=== PATIENT | male | born 1950 | race Caucasian/White ===

== ENCOUNTER → 2018-01-14 | Day surgery (SDC) | payer OTHER ==
[2017-12-31 15:34] LABS: ABSOLUTE BASOPHILS 0.1 thou/uL (0.0-0.2); ABSOLUTE EOSINOPHILS 0.3 thou/uL (0.0-0.7); ABSOLUTE LYMPHOCYTES 1.2 thou/uL (0.8-5.3); ABSOLUTE MONOCYTES 0.8 thou/uL (0.0-1.2); ABSOLUTE NEUTROPHILS 6.7 thou/uL (1.6-8.1); BASOPHILS 0.6 %; EOSINOPHILS 3.3 %; HEMOGLOBIN 14.8 gm/dL (14.0-18.0); LYMPHOCYTES 13.5 %; MCH 28.3 pg (26.0-34.0); MCHC 32.8 g/dL (28.0-37.0); MCV 86.5 fL (80.0-100.0); MONOCYTES 9.2 %; MPV 7.2 fl. (7.2-11.1); NUCLEATED RBCS 0 /100WBC; PLATELET COUNT* 311 thou/uL (150-400); POLYS 73.4 %; WBC 9.2 thou/uL (4.0-11.0)
[2017-12-31 15:40] LABS: CALCIUM 9.3 mg/dL (8.5-10.1); CREATININE 0.8 mg/dL (0.6-1.3)
[~2018-01-14] MED LIST: ALBUTEROL INHAL17 GM IH; AMOXICILLIN875 MG PO; AVELOX400 MG PO; DIAZEPAM 5 MG5 M1; FLONASE 0.05%50 MCG NS; MACROBID 100 M100 M1 PO; OXYBUTYNIN; OXYBUTYNIN 5 MG5 M2 PO; TRAMADOL; TRAMADOL 50 MG50 MG PO; TYLENOL PM EX-1 EACH PO; VALIUM5 MG PO; VITAMIN D1000 UNI1 PO
--- NOTE | 2018-01-14 16:16 | EKG ---
[place] [address] ELECTROCARDIOGRAM REPORT Name: GET KINSEY Room: [facility]#: [id number] Admission: 01/14/18 Attend Phys: Sb Blanco MD Discharge: Date of : 54 Report #: [id number] THIS REPORT FOR: //name// [facility] Test Date: 2018-01-14 Test Time: 14:39:51 Pat Name: GET KINSEY Department: Room: Gender: Certified Peer Specialist: : 1950 Requested By: Sb Blanco Order Number: [id number] Reading MD: Rah Weathers Measurements Intervals [place] Rate: 91 P: 24 LA: 157 QRS: -15 QRSD: 92 T: 61 QT: 377 QTc: 464 Interpretive Statements Sinus rhythm Probable left atrial enlargement Borderline left axis deviation Compared to ECG 05/07/2016 16:08:15 No significant changes Electronically Signed On 01-14-2018 16:16:45 CDT by Rah Weathers [email or web address] <ELECTRONICALLY SIGNED> By: Rah Weathers MD, [facility] 01/14/18 1616 1439 38 Rah Weathers MD, FAC /EPI
--- NOTE | 2018-01-20 12:50 | OP ---
[address] [address] OPERATIVE REPORT Name: GET KINSEY Room: [facility]#: [id number] Admission: 01/14/18 Attend Phys: Sb Blanco MD Discharge: Date of : 54 Report #: [id number] THIS REPORT FOR: //name// CC: Sb Veraharshal Weberith DATE OF SERVICE: 01/14/2018 PREOPERATIVE DIAGNOSES: Neurogenic bladder. POSTOPERATIVE DIAGNOSES: Neurogenic bladder. PROCEDURE PERFORMED: Cystoscopy with Botox injection. SURGEON: Sb Blanco MD. ANESTHESIA: Local only. ESTIMATED BLOOD LOSS: Minimal. COMPLICATIONS: None. 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 He is taking anticholinergics to manage his bladder. He would like to try to get off medications and try to limit his spasms around his catheter. The risks, benefits, possible complications were explained in detail for cystoscopy and Botox injection and he would like to proceed. DESCRIPTION OF PROCEDURE: After obtaining informed consent, the patient was taken to the operating room and placed in supine position. After adequate IV antibiotics, he was prepped and draped in the dorsal lithotomy position. His suprapubic catheter was removed. The genitals were prepped and draped in standard sterile fashion. A 24-[place]izen [place] catheter was placed into the bladder suprapubically, 10 mL of water was placed in the balloon. Cystoscopy was then carried out. The urethra was normal caliber all the way down to the prostatic urethra, where there was a large cavity within the prostatic urethra consistent with a prior displaced suprapubic balloon. Upon entering the bladder, the suprapubic tube was encountered in good location. The bladder mucosa was inspected. There were no stones, tumors or diverticula. There was a small amount of erythema along the posterior bladder wall. The bladder did not accommodate much fluid. Botox was mixed according to ostomy nurse's specifications and 100 units were injected in 0.5 mL injections along the posterior bladder wall. A total of 20 injections were performed from the posterior wall up to the dome, taking care to avoid the catheter and the trigone. After this had been done adequately, the cyst[place] [address] OPERATIVE REPORT Name: GET KINSEY Room: [facility]#: [id number] Admission: 01/14/18 Attend Phys: Sb Blanco MD Discharge: Date of : 54 Report #: [id number] suprapubic tube was placed to dependent drainage. The patient did have a spike in blood pressure during the treatment. It will be recommended that he continue Botox treatments under monitored anesthesia and possibly benefit from general anesthesia. <ELECTRONICALLY SIGNED> By: Sb Blanco MD 01/20/18 1250 1643 1713Sb Blanco MD /germaine
== END | disposition home or self-care (01) ==
LOC: M.SUR 07:56
PROVIDERS: Urology
DX: N31.9 Neuromuscular dysfunction of bladder, unspecified (principal); Z98.890 Other specified postprocedural states; Z91.040 Latex allergy status; Z88.0 Allergy status to penicillin; Z88.2 Allergy status to sulfonamides; Z79.899 Other long term (current) drug therapy

== ENCOUNTER → 2018-05-13 | Day surgery (SDC) | payer OTHER ==
[2018-05-13 12:47] LABS: HEMATOCRIT 48.7 % (42.0-52.0); HEMOGLOBIN 15.8 gm/dL (14.0-18.0); MCH 28.5 pg (26.0-34.0); MCHC 32.5 g/dL (28.0-37.0); MCV 87.5 fL (80.0-100.0); MPV 7.8 fl. (7.2-11.1); RBC 5.57 mil/uL (4.50-6.00); RDW-CV 15.8 % (10.5-14.5); WBC 11.8 thou/uL (4.0-11.0)
[2018-05-13 12:52] LABS: CALCIUM 8.7 mg/dL (8.5-10.1); CREATININE 0.7 mg/dL (0.6-1.3)
[2018-05-13 12:59] LABS: ALBUMIN 3.5 g/dL (3.4-5.0); TOTAL BILIRUBIN 0.4 mg/dL (<0.1-1.0); TOTAL PROTEIN 7.5 g/dL (6.4-8.2)
--- NOTE | 2018-05-13 16:46 | EKG ---
[place] [address] ELECTROCARDIOGRAM REPORT Name: GET KINSEY Room: [facility]#: [id number] Admission: 05/13/18 Attend Phys: Sb Blanco MD Discharge: Date of : 54 Report #: [id number] THIS REPORT FOR: //name// [facility] Test Date: 2018-05-13 Test Time: 12:24:11 Pat Name: GET KINSEY Department: Room: Gender: General Assignment Reporter: : 1950 Requested By: Sb Blanco Order Number: [id number] Reading MD: Angel Caldera Measurements Intervals [place] Rate: 83 P: 25 UT: 171 QRS: -5 QRSD: 90 T: 58 QT: 395 QTc: 465 Interpretive Statements Sinus rhythm Probable left atrial enlargement Compared to ECG 01/14/2018 14:39:51 No significant changes Electronically Signed On 05-13-2018 16:46:18 CDT by Angel Caldera [email or web address] <ELECTRONICALLY SIGNED> By: Angel Caldera MD, [facility] 05/13/18 1646 1224 1224 Angel Caldera MD, FACC /EPI
--- NOTE | 2018-05-31 14:25 | OP ---
[address] [address] OPERATIVE REPORT Name: GET KINSEY Room: [facility]#: [id number] Admission: 05/13/18 Attend Phys: Sb Blanco MD Discharge: Date of : 54 Report #: [id number] THIS REPORT FOR: //name// CC: Sb Blanco Bayron Weberith DATE OF SERVICE: 05/13/2018 PREOPERATIVE DIAGNOSIS: Neurogenic bladder. POSTOPERATIVE DIAGNOSIS: Neurogenic bladder. PROCEDURE PERFORMED: Cystoscopy with Botox injection. SURGEON: Sb Blanco MD. ANESTHESIA: General. ESTIMATED BLOOD LOSS: Minimal. COMPLICATIONS: None. INDICATION FOR PROCEDURE: This is a 68-year-old gentleman who is a partial quadriplegic, has neurogenic bladder with indwelling suprapubic tube. He has problems with incontinence around the tube and through his urethra if he does not take anticholinergics. He has been undergoing Botox treatments with excellent results. He now presents for repeat Botox injection. Risks, benefits, possible complications were explained in detail. He voiced understanding and would like to proceed. DESCRIPTION OF PROCEDURE: After obtaining informed consent, the patient was taken to the operating room and placed in supine position. After adequate general anesthesia and IV antibiotics, he was prepped and draped in dorsal lithotomy position. A 21-Egyptian cystoscope 30-degree lens was introduced in the anterior urethra, was normal caliber. All the way down the prostatic urethra, showed a fairly high bladder neck. Upon entering the bladder, bladder was systematically inspected. Some moderate amount of bullous edema along the posterior bladder wall consistent with indwelling suprapubic tube. The ureteral orifices were identified. There was note concerning features. A suprapubic tube had been previously moved during the prep. Using a cystoscope with a Botox injection needle, 200 units of Botox instilled using 20 mL of injectable saline at 1 mL increments were injected along the posterior bladder wall in approximately 1 cm segments. After all the injections, care was taken to avoid the trigone and the ureteral orifices. After all injections had been instilled, a 24-[place]ian suprapubic catheter was placed. Under direct vision, 10 mL was placed in the balloon. The catheter was placed to drainage[place] [address] OPERATIVE REPORT Name: GET KINSEY Room: [facility]#: [id number] Admission: 05/13/18 Attend Phys: Sb Blanco MD Discharge: Date of : 54 Report #: [id number] extubated and taken to recovery in good condition. Plan is to follow up in approximately 4-6 months for next injection. <ELECTRONICALLY SIGNED> By: Sb Blanco MD 05/31/18 1425 1413 151Phi Blanco MD /germaine
== END | disposition home or self-care (01) ==
LOC: M.SUR 08:40 → M.LAB 10:25 → M.SUR 11:55 → M.LAB 11:55
PROVIDERS: Urology
DX: N31.9 Neuromuscular dysfunction of bladder, unspecified (principal); Z91.040 Latex allergy status; Z88.2 Allergy status to sulfonamides; Z88.0 Allergy status to penicillin; Z79.899 Other long term (current) drug therapy

== ENCOUNTER → 2018-08-14 | Outpatient (CLI) | payer OTHER | LOC: M.WC 10:00 | DX: L89.303 Pressure ulcer of unspecified buttock, stage 3 (principal); L98.412 Non-pressure chronic ulcer of buttock with fat layer exposed; G82.50 Quadriplegia, unspecified; F32.1 Major depressive disorder, single episode, moderate; Z87.891 Personal history of nicotine dependence ==

== ENCOUNTER → 2019-02-02 | Outpatient (CLI) | payer OTHER | LOC: M.WC 13:00 | DX: L89.313 Pressure ulcer of right buttock, stage 3 (principal); L89.213 Pressure ulcer of right hip, stage 3; L89.153 Pressure ulcer of sacral region, stage 3; G82.50 Quadriplegia, unspecified; F33.1 Major depressive disorder, recurrent, moderate; F41.9 Anxiety disorder, unspecified; Z87.891 Personal history of nicotine dependence ==